=== PATIENT | male | born 1980 | race Caucasian/White ===

== ENCOUNTER 2017-01-09 16:49 | Emergency (ER) | payer MEDICAID ==
[2017-01-09 19:11] VITALS: BP 127/83
== END 2017-01-09 19:11 | disposition home or self-care (01) ==
LOC: ED 16:49
DX: E11.65 Type 2 diabetes mellitus with hyperglycemia (principal); Z79.84 Long term (current) use of oral hypoglycemic drugs
CPT/HCPCS: 82962; J1815